=== PATIENT | male | born 1985 | race Caucasian/White ===

== ENCOUNTER 2019-10-21 18:23 | Emergency (ER) | payer OTHER ==
[2019-10-21 18:55] LABS: BASOPHILS % (AUTO) 0.6 %; EOSINOPHILS # (AUTO) 0.1 10^3/uL (0.0-0.7); EOSINOPHILS % (AUTO) 2.1 %; HGB - HEMOGLOBIN 14.4 g/dL (14.0-18.0); LYMPHOCYTES # (AUTO) 1.7 10^3/uL (1.5-3.5); LYMPHOCYTES % (AUTO) 32.6 %; MEAN CORPUSCULAR HEMOGLOBIN 31.2 pg (27.0-31.0); MEAN CORPUSCULAR HGB CONC 34.5 g/dL (32.0-36.0); MEAN CORPUSCULAR VOLUME 90.5 fL (80.0-94.0); MEAN PLATELET VOLUME 9.4 fL (7.4-11.4); MONOCYTES # (AUTO) 0.4 10^3/uL (0.0-1.0); MONOCYTES % (AUTO) 7.2 %; NEUTROPHILS % (AUTO) 57.1 %; PLT - PLATELET COUNT 291 10^3/uL (130-450); RED BLOOD COUNT 4.61 10^6/uL (4.70-6.10); RED CELL DISTRIBUTION WIDTH 11.6 % (12.0-15.0); WHITE BLOOD COUNT 5.2 x10^3/uL (4.8-10.8)
[2019-10-21 19:07] LABS: ALBUMIN 4.7 g/dL (3.2-5.5); ALBUMIN/GLOBULIN RATIO 1.6 (1.0-2.2); BILIRUBIN,TOTAL 0.8 mg/dL (0.2-1.0); CALCIUM 9.2 mg/dL (8.5-10.3); CREATININE 0.9 mg/dL (0.6-1.2); TOTAL PROTEIN 7.7 g/dL (6.7-8.2)
--- NOTE | 2019-10-21 19:30 | XRAY Report ---
Reason: CP, SOA Procedure Date: 10/21/2019 Accession Number: [id number] / [id number] Procedure: XR - Chest 2 View X-Ray CPT Code: 93076 Final Report FULL RESULT: EXAM: CHEST RADIOGRAPHY EXAM DATE: 10/21/2019 07:04 PM. CLINICAL HISTORY: CP, SOB. COMPARISON: None. TECHNIQUE: 2 views. FINDINGS: Lungs/Pleura: No focal lung consolidation. No pleural effusion. No pneumothorax. Mediastinum: Cardiac silhouette size appears unremarkable. Other: None. IMPRESSION: No focal lung consolidation or pleural effusions. RADIA
--- NOTE | 2019-10-21 20:30 | ED Physician Documentation ---
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 Patient began having a symptoms around 1.5 weeks ago, states that when he is at rest she will notice some discomfort on his left side extending down his left arm into his hand. He intermittently will have some tingling in his fingertips on the left side. He has no neck pain, no weakness in the arm. He is not any trauma to the arm. Not any swelling or redness in his extremities. He denies any shortness of breath. From time to time he will feel like his heart is going a bit faster than usual and he is more aware of his heartbeat. He denies any history of cardiac problems personally, his father did have an NE at the age of 54. He decided to call the care line given his persistence of his symptoms for 1.5 weeks, and they directed him here to the emergency department. He states that when he is active he does not have any symptoms, has been able to exercise without issue. No leg swelling, no history of blood clots Review of Systems Constitutional: denies: Fever Cardiac: reports: Chest pain / pressure Respiratory: denies: Dyspnea PD PAST MEDICAL HISTORY - Past Medical History Past Medical History: No - Past Surgical History Past Surgical History: No - Present Medications Home Medications: Ambulatory Orders Medication Instructions Recorded Confirmed No Known Home Medications 10/21/19 10/21/19 - Allergies Allergies/Adverse Reactions: Allergies Allergy/AdvReac Type Severity Reaction Status Date / Time No Known Drug Allergies Allergy Verified 10/21/19 18:36 - Social History Does the pt smoke?: No Smoking Status: Never smoker Does the pt drink ETOH?: Yes Does the pt have substance abuse?: No - Immunizations Immunizations are current?: Yes - POLST Patient has POLST: No PD ED PE NORMAL - Vitals Vital signs reviewed: Yes - General General: Alert and oriented X 3, No acute distress - HEENT HEENT: PERRL - Neck Neck: Supple, no meningeal sign - Cardiac Cardiac: RRR, No murmur - Respiratory Respiratory: Clear bilaterally - Abdomen Abdomen: Normal bowel sounds, Soft, Non tender, Non distended - Derm Derm: Warm and dry - Extremities Extremities: No deformity - Neuro Neuro: Alert and oriented X 3, 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, No motor deficit, No sensory deficit, Normal speech - Psych Psych: Normal mood, Normal affect Results - Vitals Vitals: Oxygen O2 Source Room air - EKG (time done) 18:31 Other comments: Other comments (Rate 68, rhythm sinus, No ST segment changes, intervals within normal limits.) - Labs Labs: Laboratory Tests 10/21/19 10/21/19 10/21/19 18:29 18:49 18:49 WBC 5.2 RBC 4.61 L Hgb 14.4 Hct 41.7 L MCV 90.5 MCH 31.2 H MCHC 34.5 RDW 11.6 L Plt Count 291 MPV 9.4 Neut # (Auto) 3.0 Lymph # (Auto) 1.7 [place] # (Auto) 0.4 Eos # (Auto) 0.1 Baso # (Auto) 0.0 Absolute Nucleated RBC 0.00 Nucleated RBC % 0.0 Sodium 139 Potassium 4.1 Chloride 102 Carbon Dioxide 29 Anion Gap 8.0 BUN 21 H Creatinine 0.9 Estimated GFR (MDRD) 96 Glucose 112 H Calcium 9.2 Total Bilirubin 0.8 AST 29 ALT 34 Alkaline Phosphatase 38 L Troponin I High Sens 4.0 Total Protein 7.7 Albumin 4.7 Globulin 3.0 Albumin/Globulin Ratio 1.6 Lipase 39 - Rads (name of study) CXR Radiology: Other (No acute cardiopulmonary abnormality) Bedside Echo Radiology: Other (No pericardial effusion, grossly normal LVEF) PD MEDICAL DECISION MAKING - ED course Complexity details: considered differential (ACS, dysrhytmia, radiculopathy, PTX, PNA, pleural effusion, PE) ED course: Pt is very well appearing and with a normal cardiopulmonary and neurologic exam. EKG shows no signs of ischemia or dysrhythmia, he is low risk for cardiac pathology by risk factors, and his HS troponin is negative despite >1 week of symptoms, making ACS extremely unlikely. He is PERC negative. CXR shows no abnormality. He has no neck pain or neurologic abnormality, I see no signs of a radiculopathy or other acute neurologic problem. Bedside US shows no pericardial effusion, grossly normal LVEF. CBC and CMP unremarkable. I discussed our work up and that I did not see an obvious cause of his symptoms. I recommended close PCP follow up and I reviewed return precuations. Pt agreed with this plan and was discharged home. Departure - Departure Disposition: Home, Self Care Clinical Impression: Chest pressure Condition: Good Instructions: ED Chest Pain Atypical Unkn Cause Follow-Up: CHIN SUN MD [Primary Care Provider] - Within 1 week Comments: You were seen today for chest pressure and discomfort in your left arm. Your labs today are reassuring, I do not see signs of strain of your heart, and your chest x-ray does not show issues with your heart or lungs. While your labs are reassuring at this time, is very important that you follow-up with your primary care provider and if you are having any worsening or new concerning symptoms such as trouble breathing, pain that is worse with exertion, passing out, or coughing up blood return to the emergency department. Discharge Date/Time: 10/21/19 21:34
[2019-10-21 21:33] VITALS: BP 117/70
== END 2019-10-21 21:34 | disposition home or self-care (01) ==
LOC: ED 18:23
DX: R07.89 Other chest pain (principal); Z82.49 Family history of ischemic heart disease and other diseases of the circulatory system; Z94.81 Bone marrow transplant status
CPT/HCPCS: 36415; 71046; 80053; 83690; 84484; 85025; 93005; 99284

== ENCOUNTER 2024-04-08 09:03 | Outpatient (CLI) | payer OTHER ==
--- NOTE | 2024-04-08 14:24 | MRI Report ---
PROCEDURE: Lumbar Spine WO INDICATIONS: CHRONIC LOW BACK PAIN TECHNIQUE: Multiplanar multisequential MRI images of the lumbar spine were obtained without intraven ous contrast. COMPARISON: None. FINDINGS: Alignment and Curvature: There is normal bony alignment. Bone Marrow: Marrow is of normal overall signal. No acute vertebral body compression fractures. No sacral fractures. Spinal Cord: Conus medullaris terminates at the L1 level. Visualized cord demonstrates normal signa l and size. Paraspinal Soft Tissues: Unremarkable perivertebral soft tissues. T12-L1: Normal in appearance. L1-L2: Normal in appearance. L2-L3: Normal in appearance. L3-L4: Normal in appearance. L4-L5: Normal in appearance. L5-S1: Disc space narrowing and posterior disc bulge results in no central stenosis. Mild left fora sofi stenosis. No right foraminal stenosis IMPRESSION: Mild degenerative changes at L5-S1 results in mild left foraminal stenosis Reviewed by: Tj Marcum MD on 04/08/2024 1:23 PM NICOLE Approved by: Tj Marcum MD on 04/08/2024 1:23 PM AKDT Station ID: [id number]
--- NOTE | 2024-04-09 01:03 | MRI Report ---
PROCEDURE: MRI cervical spine without contrast INDICATIONS: CHRONIC NECK PAIN TECHNIQUE: Multiplanar multisequential MRI of the cervical spine was obtained without contrast. COMPARISON: None. FINDINGS: Alignment and Curvature: There is normal bony alignment. Bone Marrow: Marrow demonstrates normal overall signal. Artifact at C2-3 related to permanent denta l hardware Spinal Cord: Visualized spinal cord has normal size and signal. No cerebellar tonsillar herniation. Paraspinal Soft Tissues: No paravertebral masses. Prevertebral soft tissues are normal in thickness . C2-C3: Normal in appearance. C3-C4: Normal in appearance. C4-C5: Normal in appearance. C5-C6: Disc height is maintained. The posterior disc osteophyte complexes asymmetric to the left res ulting in flattening of the cervical cord without cord edema. Moderate central stenosis. No foraminal stenosis. C6-C7: Normal in appearance. C7-T1: Normal in appearance. IMPRESSION: Posterior disc osteophyte complex at C5-6 with moderate central stenosis and asymmetric left flatteni ng the cord Reviewed by: Tj Marcum MD on 04/09/2024 12:02 AM NICOLE Approved by: Tj Marcum MD on 04/09/2024 12:02 AM NICOLE Station ID: [id number]
== END 2024-04-08 09:04 | disposition home or self-care (01) ==
LOC: DI 09:03
PROVIDERS: ATTEND Nurse Practitioner Family
DX: M47.817 Spondylosis without myelopathy or radiculopathy, lumbosacral region (principal); M51.37 Other intervertebral disc degeneration, lumbosacral region; M48.07 Spinal stenosis, lumbosacral region; M25.78 Osteophyte, vertebrae; M48.02 Spinal stenosis, cervical region

== ENCOUNTER 2024-05-05 14:33 | Outpatient (CLI) | payer OTHER ==
--- NOTE | 2024-05-07 11:05 | SLEEP CARE CONSULTATION ---
Information from patient questionnaire entered by Vasquez Hernandez. I have reviewed and concur with the information entered by Vasquez Hernandez. This document represents the service I personally performed and the decisions made by me, Carey Velasco MD, [facility]. History of Present Illness Service Date and Time: 05/05/2024 1433 Reason for Visit: New patient Chief Complaint: reports: Unrefreshed sleep, Snoring, Observed pauses in breathing, Fatigue Date of Onset: 1-2YRS Usual bedtime: 2230 Time it takes to fall asleep: LESS THAN 5 MINS Snores at night: Yes Observed to quit breathing while asleep: Yes Sleeps alone due to snoring: Yes Number of times waking at night: 0-1 Reasons for waking at night: reports: Bathroom Toss, Turn, or Twitch while sleeping: Yes Recalls having dreams: Yes Usually gets out of bed at: 0530 Feels refreshed in the morning: No Morning headache: No Sleepy or fatigued during the day: Yes Ever fallen asleep while driving: No Takes day naps: No Prior sleep studies: No Additional HPI information: I had the pleasure of talking to Mr. Franklin today over the phone today regarding the possibility of him having a sleep disorder. As you know, he is a 38-year-old gentleman who complains of loud snores. The patient tells me that he normally goes to bed around 11 pm, and it takes him approximately just a few minutes to fall asleep. He has been told that he snores loudly and irregularly at night. He has also been observed to stop breathing in his sleep. His has to sleep in a separate room. He can recall waking up on the average of 0 times during the night. He has never awakened because of his own snoring, choking, or having to gasp for air. There is not a lot of tossing and turning in his sleep. No somniloquy (sleep talking) or somnambulism (sleep walking). Generally, he can recall having dreams. In the morning he usually gets up out of the bed around 6 a.m. feeling refreshed and rested. He usually does not have a morning headache. During the day he complains of feeling sleepy and fatigued. His score on [place] Sleepiness Scale is 4 out of 24. He never has fallen asleep while driving nor has had any accident due to sleepiness. He usually does not take naps during the day. He reports having impaired concentration during the day. - Parasomnia Symptoms Ever been unable to move upon waking from sleep: No Walks in sleep: No Talks in sleep: No Ever acted out dreams in sleep: No Ever felt weak in the knees when startled or emotional: No Bothered by creepy, crawly, restless sensations in legs: No Problems with memory or concentration: Yes Subjective Initial [place] Sleepiness Scale score: 4 (05/05/24) Social History The patient's occupation is a AM. Patient is and lives in [place]. Have you smoked in the past 12 months: No Alcohol use: Yes Alcohol amount and frequency: 1-2 1/3/.TIMES A WEEK Caffeine use: Yes Caffeine amount and frequency: 16-24OZ DAILY Family History Family history of sleep disordered breathing: Yes Family Hx Sleep Apnea: Mother: Snoring, Father: Snoring, Sibling: Snoring Allergies and Home Medications Known drug allergies: No Drug allergies reviewed: Yes Home medication list reviewed: Yes Allergy and home medication list: Allergies No Known Drug Allergies Allergy (Verified 05/01/24 10:55) Review of Systems Cardiovascular: denies: high blood pressure, palpitations, chest pain, irregular heart rate or pulse, leg or foot swelling, have to sleep sitting up, other Respiratory: denies: shortness of breath, wheeze, sputum production, chronic cough, other Gastrointestinal: denies: heartburn, difficulty swallowing, nausea, vomitting, diarrhea, abdominal pain, other Urinary: denies: incontinence, frequency, urgency, impotence, other Neurological: denies: headaches, seizure, head trauma, disorientation, speech dysfunction, gait or balance problems, fainting or unconsciousness, other Psychiatric: denies: Attention Deficit Hyperactivity, anxiety, depression, mood disorder, claustrophobia, other Ear/Nose/Throat: reports: nasal congestion, injury to nose, wisdom teeth removed Endocrine: denies: thyroid disease, history of goiter, sluggishness, too hot or cold, excessive thirst, increased appetite, increased urination, unexplained weakness, other Musculoskeletal: reports: back pain Immunologic: denies: sneezing, rash, itching, allergies to food or environment, other Physical Exam Vital signs obtained and entered by: VASQUEZ Patino MA Blood Pressure: 161/98 (RIGHT ARM) Cuff size: regular Heart Rate: 67 O2 Saturation: 98 Height: 6 ft 2 in Weight: 196 lb Body Mass Index: 25.1 BMI Classification: Overweight Neck circumference: 16 Mood/affect: Normal Impression and Plan IMPRESSION: 1. Obstructive Sleep Apnea-Hypopnea Syndrome, as suggested by history of loud and irregular snoring, observed cessation of breath while asleep, cognitive impairment, and daytime hypersomnolence. Narrow oropharynx and obesity are common predisposing factors for obstructive sleep apnea-hypopnea syndrome. I recommend proceeding to polysomnography to confirm the diagnosis and to assess severity. If he has significant sleep disordered breathing, a manual CPAP titration study will also be performed to find the optimal treatment pressure. I informed the patient of what the sleep studies involve and after some discussion, he agreed to proceed. Plan: 1. Schedule polysomnography + manual CPAP titration study and return in 1 to 2 weeks after the study to discuss result and initiate therapy. 2. Avoid long distance driving or when feeling sleepy. 3. Avoid alcohol, sedative and muscle relaxant around bedtime. Follow up with Sleep Care in: 1-2 months Visit Type: Telehealth Video Video Type: [employer] Patient Location: Home Location of Provider: Home Patient agrees and consents to this telehealth visit type: Yes Patient agrees to have their insurance billed: Yes Time Spent with Patient (minutes): 15 Provider Statement: I spent 100% of the Telehealth Video Call with the patient with greater than 50% spent counseling the patient and coordination of care.
[2024-05-07 11:12] VITALS: BP 161/98; O2SAT 98
== END 2024-05-05 14:34 | disposition home or self-care (01) ==
LOC: SC 14:33
PROVIDERS: ATTEND Internal Medicine Pulmonary Disease
DX: R06.83 Snoring (principal); R06.81 Apnea, not elsewhere classified; R53.83 Other fatigue; R41.89 Other symptoms and signs involving cognitive functions and awareness; G47.10 Hypersomnia, unspecified; E66.3 Overweight; Z68.25 Body mass index [BMI] 25.0-25.9, adult

== ENCOUNTER 2024-06-01 20:40 | Outpatient (CLI) | payer OTHER | END 2024-06-01 20:41 | disposition home or self-care (01) | LOC: SC 20:40 | PROVIDERS: ATTEND Internal Medicine Pulmonary Disease | DX: R06.83 Snoring (principal); R06.81 Apnea, not elsewhere classified; R41.89 Other symptoms and signs involving cognitive functions and awareness; G47.10 Hypersomnia, unspecified | CPT/HCPCS: 95810 ==

== ENCOUNTER 2024-07-24 14:20 | Outpatient (CLI) | payer OTHER ==
--- NOTE | 2024-07-24 14:40 | Sleep Patient Instructions ---
Sleep Center Visit Summary - Patient Visit Information Reason for Visit: Sleep study follow-up - Patient Instructions Instructions Attached: Snoring Tips Prevent Additional Instructions: Your sleep study today was negative for significant sleep disordered breathing. You were found to have episodes of snoring. There are different ways to control snoring including weight loss, oral devices made by a dentist or surgical options through ENT specialist. You should not use oral devices that do not fit properly because they can affect your bite. You should also check insurance coverage of oral devices for snoring because they may not be cover well. You may obtain a referral to an ENT specialist through your primary provider. Follow-up as needed. - Clinic Information Contact: [facility] [address] [place] [address] [email or web address] T: [phone]
--- NOTE | 2024-07-24 14:42 | SLEEP CARE CONSULTATION ---
Information from patient questionnaire entered by Renee Hernandez. I have reviewed and concur with the information entered by Renee Hernandez. This document represents the service I personally performed and the decisions made by , Violetta Elkins ARNP. History of Present Illness Service Date and Time: 07/24/2024 1420 Initial [place] Sleepiness Scale score: 4 (05/05/24) Current [place] Sleepiness Scale score: 4 (07/24/24) Additional HPI information: RAJNI MOORE returns for follow up and results of the recently performed polysomnography done on 06/01/24. The patient was informed of the following findings: No significant sleep disord ered breathing with an average AHI of 1.2 and erika oxygen saturation of 90%. I explained the pathophysiology behind obstructive sleep apnea. Patient does not have sleep apnea and was advised how weight gain could increase the risk of developing sleep apnea in the future. Patient has moderate snoring. Snoring can be reduced by weight loss. Weight loss is best achieved with diet consult. Patient instructed to contact PCP for referral. Snoring can also be treated with an oral appliance from a dentist. Advised to check insurance coverage. In addition, an ENT evaluation can be do to see if other treatment is indicated. Patient counseled not drink alcohol less than 4 hours before bedtime as it can increase snoring and apnea. Patient was cautioned about risks of drowsy driving until sleepiness symptoms resolve. Patient denies drowsy driving. Sleep Study - Results Type of Sleep Study: Polysomnography (COMPLETED 06/01/24) Prior sleep studies: No Polysomnography/Home Sleep Study results: IMPRESSION: The quality of the study is good. The patient had normal sleep efficiency. Except for mild sleep fragmentation, the sleep architecture was normal. Respiratory monitoring showed no significant sleep disordered breathing obstructive sleep apnea-hypopnea (AHI = 1.2) or hypoxia (erika oxygen saturation of 90%). The few respiratory events occurred only during supine sleep (supine AHI = 3.6; non- supine = 0.00). Snore was intermittent and light to moderate in intensity. There was no significant periodic leg movement of sleep. Cardiac rhythm was normal sinus rhythm without significant arrhythmia. No abnormal behavior (parasomnia) observed during the night. Allergies and Home Medications Known drug allergies: No Drug allergies reviewed: Yes Home medication list reviewed: Yes (no changes) Allergy and home medication list: Allergies No Known Drug Allergies Allergy (Verified 07/24/24 14:26) Review of Systems Review of systems same as previous: Yes (NO CHANGE) Physical Exam Vital signs obtained and entered by: RENEE Patino MA Blood Pressure: 130/80 (LEFT ARM) Cuff size: regular Heart Rate: 66 O2 Saturation: 97 Height: 6 ft 2 in Weight: 203 lb 3.2 oz Body Mass Index: 26.1 BMI Classification: Overweight Impression and Plan 1. Snoring but no significant sleep disordered breathing. Patient advised that often weight loss can reduce snoring as well as apnea risk. An oral appliance can also be used for snoring. This would require a dental consultation. Patient cautioned not to use other online appliances as can cause bite issues. A list of accredited dentists in area and one local dentist who makes oral appliances given. Patient is advised to check if insurance will cover. An ENT consult can also be helpful to determine if any other treatment is an option. 2. Overweight, unspecified. Currently patients BMI is 26.1. Obesity increases the risk of apnea, CPAP pressure requirements and overall health risks especially cardiovascular and diabetes. Thus patient is advised to lose weight. * Attempt to lose weight * Avoid alcohol consumption near bedtime * Return as needed for follow up. Counseling Topics: Weight loss health impact Follow up with Sleep Care in: as needed Visit Type: In Office Time Spent with Patient (minutes): 11 Provider Statement: I spent 100% of the Face to Face Visit with the patient with greater than 50% spent counseling the patient and coordination of care.
[2024-07-24 14:51] VITALS: BP 130/80; O2SAT 97
== END 2024-07-24 14:21 | disposition home or self-care (01) ==
LOC: SC 14:20
PROVIDERS: ATTEND Nurse Practitioner Family
DX: R06.83 Snoring (principal); E66.3 Overweight; Z68.26 Body mass index [BMI] 26.0-26.9, adult
CPT/HCPCS: 99212